=== PATIENT | male | born 1945 ===

== ENCOUNTER → 2023-05-10 14:38 | Outpatient (REF) | payer MEDICARE, SELFPAY ==
--- NOTE | 2023-05-10 14:44 | CA_ITS ---
Transthoracic Echocardiogram Patient (Last, First, Middle): Naga Gutierrez R Gender: Male Date of : 1945 Age: 78 Procedure Date: 05/10/2023 Procedure Type: Transthoracic Echocardiogram Location: [facility] Height: 175.26 cm Weight: 70.31 kg BSA: 1.85 m2 Heart Rate: bpm BP: 130 / 75 mmHg Crm Marketing Executive: TRUNG Brown MD: [employer]ak Fulton MD Hybrid Car Mechanic: Scott Melendez MD Symptoms: CARDIAC MURMUR R01.1 Study Quality: Adequate ECG Rhythm: Sinus Conclusions: - 1. Normal LV systolic function with impaired relaxation filling pattern 2. Mild calcific aortic stenosis 3. Normal RV systolic pressure 4. No gross pericardial effusion Findings Left Ventricle Normal left ventricular size, thickness, and systolic function. The visually estimated ejection fraction is between 60-65%. Spectral Doppler is indicative of an impaired relaxation filling pattern. E/E prime ratio is between 8 and 15 consistent with indeterminate filling pressures. Peak GLS is -18.7%, within normal limits. Right Ventricle Normal right ventricular cavity size and systolic function. Atria The left atrium is likely dilated. There is no evidence of interatrial shunt. The right atrium is normal in size. Aortic Valve There is moderate calcification of the aortic valve. There is mild thickening of the aortic valve. There is mild aortic valve stenosis. There is no aortic valve regurgitation. The noted discrepancy between valve area and gradients is most likely due to calculated left ventricular diameter. Dimensionless index is greater than 0.33, more suggestive of mild aortic stenosis Mitral Valve There is mild anterior and posterior mitral leaflet thickening. There is mild anterior mitral annular calcification. There is trace mitral valve regurgitation. There is no mitral valve stenosis. Pulmonic Valve The pulmonic valve was not well visualized. Tricuspid Valve Normal tricuspid valve structure. There is trace tricuspid valve regurgitation. The right ventricular systolic pressure is normal. The right ventricular systolic pressure is 25 mmHg. Normal right atrial pressure. There is no evidence of pulmonary hypertension. Great Vessels All visible segments of the aorta are normal in size. The pulmonary artery was not well visualized. Venous The inferior vena cava is normal in size and collapses greater than 50% with inspiration. Pericardium/Pleural There is no evidence of pericardial effusion. Prior Study Comparison No prior study available for comparison. Measurements 2D Linear Measurements IVSd: 0.78 0.6-0.9/0.6-1.0 cm LVIDd: 4.42 3.9-5.3/4.2-5.9 cm LVIDd Index: 2.39 2.4-3.2/2.2-3.1 cm/m2 LVIDs: 3.30 2.0-3.6 cm LVPWd: 0.79 0.7-1.1 cm LA Diam: 3.60 2.7-3.8/3.0-4.0 cm LAIDs Index: 1.95 1.5-2.3 cm/m2 LV Mass: 133.38 67-162/88-224 g LV Mass Index: 72.10 43-95/49-115 g/m2 LVOT Diam: 1.90 3.0+(-)1.3 cm 2D Systolic Function EF 4C: 59.00 >55% EF 2C: 62.60 >55% EF BiP: 61.70 >55% Mitral Valve MV Pk E: 1.02 MV PK A: 0.94 MV Decel Time: 253.00 E/A: 1.10 E'Lateral: 10.20 E'Medial: 6.85 E/E' Med: 14.90 E/E' Lat: 10.00 PHT: 74.00 MVA PHT: 2.97 Decel [place]: 4.05 Aortic Valve AoV Pk Jamel: 2.26 AoV Mn Jamel: 1.65 AoV VTI: 0.56 AoV Pk Grad: 20.00 Aov Mn Grad: 12.00 CHICA Cont.VTI: 1.02 LVOT LVOT Pk Jamel: 0.84 LVOT Mn Jamel: 0.59 LVOT VTI: 0.20 LVOT Pk Grad: 3.00 LVOT Mn Grad: 2.00 LVOT Diam: 1.90 LVOT Area: 2.84 Diastolic Function MV Pk E: 1.02 MV Pk A: 0.94 E/A: 1.10 E'Medial: 6.85 E/E' Med: 14.90 E' Laterial: 10.20 E/E' Lat: 10.00 Right Ventricle TAPSE (mm): 21.50 TVS' Jamel: 11.90 Tricuspid Valve TR Pk Jamel: 2.36 TR Pk Grad: 22.00 RA Press: 3.00 RVSP: 25.00 Great Vessels Aorta Sinus of Valsalva: 3.50 2.0-3.5 cm Ao Asc: 3.30 2.1-3.4 cm Pulmonary Valve PV Pk Jamel: 1.09 Peak PV Grad: 5.00 Updated in Other Vendor System with Status of Final Scott Melendez MD electronically signed on 05/10/2023 4:50:06 PM with status of Final
== END ==
LOC: HO.CARD 14:38
PROVIDERS: PCP Pediatrics; Visit Provider Pediatrics
DX: R01.1 Cardiac murmur, unspecified (principal)
CPT/HCPCS: 93306; 93356